=== PATIENT | female | born 1945 | race Caucasian/White ===

== ENCOUNTER 2025-03-27 22:08 | Inpatient (IN) | payer MEDICARE, OTHER, SELFPAY ==
[2025-03-27 17:02] VITALS: BP 143/89
[2025-03-27 18:57] VITALS: BMI 26.0
[2025-03-27 19:09] LABS: % Basophils 1.1 % (0-2); % Eosinophils 2.5 % (0-6); % Immature Granulocytes 0.2 % (0-0.5); % Lymphocytes 19.1 % (20.5-51.1); % Neutrophils 64.1 % (42.2-75.2); Absolute Basophils 0.1 10^3/uL (0-0.2); Absolute Eosinophils 0.1 10^3/uL (0-0.7); Absolute Lymphocytes 1.1 10^3/uL (1.2-3.4); Absolute Monocytes 0.7 10^3/uL (0.1-0.6); Absolute Neutrophils 3.7 10^3/uL (1.4-6.5); Hematocrit 38.8 % (37.0-47.0); Hemoglobin 13.1 g/dL (12.0-16.0); Mean Corp Hgb Conc. 33.8 g/dL (33.0-37.0); Mean Corpuscular Hgb 31.4 pg (27.0-31.0); Mean Platelet Volume 12.5 fL (7.4-10.4); Nucleated Red Blood Cells % 0 %; Platelet Count 154 10^3/uL (130-400); Red Blood Cell Count 4.17 10^6/uL (4.20-5.40); Red Cell Dist. Width 14.4 % (11.5-14.5); White Blood Cell Count 5.7 10^3/uL (4.8-10.8)
[2025-03-27 19:33] LABS: Troponin I 0.013 ng/ml
[2025-03-27 19:36] LABS: Blood Urea Nitrogen 20 mg/dl (7-17); Calcium 9.4 mg/dl (8.4-10.2); Carbon Dioxide 25 mmol/L (22-30); Chloride 111 mmol/L (98-107); Estimated Creatinine Clearance 46 ml/min; Glucose 94 mg/dl (70-99); Potassium 4.1 mmol/L (3.5-5.1); Sodium 141 mmol/L (135-145); eGFR > 60.00
[2025-03-27 21:00] VITALS: BP 151/104
--- NOTE | 2025-03-27 21:04 | HPS.HSE ---
Family Physician
-
Family Physician: Juan Diego William
Chief Complaint
-
Dizziness, Palps, Weakness sent in for Aflutter RVR at cardio office
History of Present Illness
79yo F with PMH HTN, Atrial Fibrillation on Xarelto/Metoprolol, CVA (~5yrs ago, R Residual LE weakness), Neuropathy, Chronic Back Pain who presents to ER for weakness, palpitations, dizziness. Pt is belarusian speaking. Her Son, Dave Feliciano, at bedside
aiding in translation per pt preference. Symptoms have been intermittent for months-years but today it was more severe prompting evaluation. Also endorses mild nausea without emesis. Today she was seen by Rn Staffing Juan Diego William who sent her to
ER for further evaluation after HR 138, EKG confirming Aflutter RVR. At time of discharge he increased metoprolol succ from 50mg to 100mg daily. Son does state that she recently moved to live with him from [place] 2 months ago and Thus he would
like her to establish care with a more local educational recruiter. Denies F/C, CP, Wheezing, Cough, SOB, Abd Pain, Vomitting, Dysuria, Calf or Leg pain.
ER course: T�99.0,�HR 125->105,�BP 143/89,�RR 22,�Sat 96% RA. WBC 5.7K, Hgb 13.1 g/dL. BUN/Cr 20/0.9, K 4.1,� HS Trop 0.013.�CXR NAD (official read pending.) EKG Aflutter wtih variable AVB @ 95bpm, TWI II-AVF,�V4-V6, QTC 424ms. S/P 5mg IV cardizem
gtt and Bolus in ER.�
Medical History
Past Medical History
Past Medical History: Reports Other (HTN, Atrial Fibrillation on Xarelto/Metoprolol, CVA (5yrs ago with R Leg Weakness), Neuropathy, Chronic Back Pain )
Past Surgical History: Reports Other
Additional Past Surgical History:
Cataract B/L
Social History
Tobacco: Non-smoker
Alcohol: None
Drug: None
Living: With Family
Employment: Retired
Family History
Family History: Other (Unknown family history. Son with no medical conditions. )
Allergies / Home Medications
Allergies reflects when Allergies were last updated in [facility] [employer].
Home Medications with original date entered in [facility] [employer]
Allergy/Medication List:
Allergies
Allergy/AdvReac Type Severity Reaction Status Date / Time
No Known Allergies Allergy Unverified 03/27/25 17:01
Home Medications
amlodipine 5 mg tablet 5 mg PO DAILY 03/27/25
calcium 500 mg (as carbonate)-vitamin D3 10 mcg (400 unit) tablet (Oyster Shell Calcium-Vitamin D3) tab 03/27/25
cholecalciferol (vitamin D3) 50 mcg (2,000 unit) tablet 50 mcg PO DAILY 03/27/25
gabapentin 300 mg tablet 300 mg PO BID 03/27/25
magnesium oxide 400 mg (241.3 mg magnesium) tablet (MagOx) 400 mg PO DAILY 03/27/25
meclizine 12.5 mg tablet 12.5 mg PO TID PRN dizziness 03/27/25
metoprolol succinate 100 mg capsule sprinkle, ext. release 24 hr 100 mg PO DAILY 03/27/25
rivaroxaban 20 mg tablet 20 mg PO QPM 03/27/25
vitamin E 400 unit tablet 03/27/25
Review of Systems
-
A 12 point ROS was completed and negative except as noted: Yes
Physical Exam
Vital Signs
Vital Signs
Temp Pulse Resp BP Pulse Ox
99.0 F 105 22 143/89 96
03/27/25 17:02 03/27/25 20:15 03/27/25 20:15 03/27/25 17:02 03/27/25 20:15
Physical Exam
General: Well Developed, Well Nourished, No Apparent Distress and Other (Colombian Speaking)
HEENT: NormoCephalic, Moist mucous membranes and Atraumatic
Respiratory: Clear; No Wheezes, Rales or Rhonchi
Cardiac: S1/S2, Irregular Rhythm and Tachycardia; No Murmur or Rub
GI: Soft, Non Tender, Non Distended and Normal Bowel Sounds; No Organomegaly
Rectal: Deferred by Provider
Musculoskeletal: No Clubbing, No Cyanosis and No Edema
Skin: Warm and Dry; No Rash
Neuro: Awake, Alert, Oriented, AO x 3, Cranial Nerves Intact, No Sensory Deficits and Other (MSK UE 5/, MSK LLE 5/5. MSK RLE 4/ (chronic). )
Hematologic/Lymphatic: No Lymphadenopathy
Psych: Calm and Intact Judgment/Insight
Laboratory Results
-
03/27/25 18:57
03/27/25 18:57
Laboratory Results
Troponin I 0.013 ng/ml 03/27/25 18:57
Data Reviewed
-
Diagnostic Radiology: Image Personally Visualized and interpreted
Medical Tests (Nuc Med, Echo, EKG etc): Image Personally Visualized and interpreted
Lab Data: Labs Reviewed by me
Old Records: Reviewed
Impression/Plan
-
79yo F with PMH HTN, Atrial Fibrillation on Xarelto, CVA, Neuropathy, Chronic Back Pain who presents to ER for weakness, palpitations, dizziness found to be in Aflutter RVR sent in by cardio office
Aflutter RVR
Elevated Troponin
- Pt presents with dizziness, palpitatoins, weakness more severe today
- HR 138 at Rn Staffing (Juan Diego William) office. Metoprolol increased from Toprol XL 50mg -> 100mg daily and sent to ER
- HR 125 on arrival. EKG Aflutter wtih variable AVB @ 95bpm, TWI II-AVF,�V4-V6, QTC 424ms.
- S/p 5mg IV cardizem bolus/gtt.
- Continue Xarelto for A.C.
- Maintain K >4.0 and Mag 2.0
- Check TSH, Lipids, A1C
- TTE per patient paperwork 05/2020: EF 65%, Mild MR
- Repeat TTE
- Cardio consulted.
HTN - Continue home metoprolol and amlodipine with hold parameters
Hx CVA - Mild Right LE residual weakness. Not on aspirin therapy. Likely embolic etiology. Continue eliquis. Not on statin therapy. Check Lipids.
Neuropathy / Chronic Pain - Continue home gabapentin.
Diet: Cardiac
DVT ppx: Xarelto
Code Status: Full Code, confirmed with patient and son Dave Feliciano
[2025-03-27] MEDS: CARDIZEM 125 IV (21:09)
[2025-03-27] MEDS: CARDIZEM 5 MG IV (21:10)
[2025-03-27 21:48] LABS: ALT (SGPT) 92 U/L (0-35); AST (SGOT) 98 U/L (14-36); Albumin 3.9 g/dl (3.5-5.0); Alkaline Phosphatase 69 U/L (38-126); Direct Bilirubin 0.2 mg/dl (0.0-0.4); Total Bilirubin 0.7 mg/dl (0.2-1.3); Total Protein 6.3 g/dl (6.3-8.2)
[2025-03-27 22:19] LABS: TSH Reflex To Free T4 2.25 uIU/ml (0.47-4.68)
[2025-03-27 23:21] VITALS: BP 116/76
[2025-03-27 23:52] VITALS: BP 168/110
[2025-03-28] VITALS (14 sets, daily range): BP systolic 120–166; BP diastolic 77–103; BMI 26.0; BMI 24.6
--- NOTE | 2025-03-28 01:07 | PTCARENOTE ---
Pt admitted on the unit from ED at 2350, able to walk from stretcher to bed without issues. aaox4 primary language Citizen [place], however is able to make needs known and speak [place] Irish. Cardizem gtt infusing at 2.5 ml/hr via right AC. Afib on the
monitor. HR 48-65, BP 133/81. diagnostic tech COURT MANAGER made aware, cardizem gtt on hold at 0020. Pt denies any complaints of pain/dizziness/SOB. Call black within reach, oriented to room and surroundings.
[2025-03-28] MEDS: XARELTO 20 MG PO ×2 (01:22→17:25)
[2025-03-28 04:27] LABS: Hematocrit 38.7 % (37.0-47.0); Hemoglobin 12.9 g/dL (12.0-16.0); Mean Corp Hgb Conc. 33.3 g/dL (33.0-37.0); Mean Corpuscular Hgb 31.5 pg (27.0-31.0); Mean Corpuscular Volume 94.6 fL (81.0-99.0); Mean Platelet Volume 12.9 fL (7.4-10.4); Platelet Count 136 10^3/uL (130-400); Red Blood Cell Count 4.09 10^6/uL (4.20-5.40); Red Cell Dist. Width 14.3 % (11.5-14.5); White Blood Cell Count 4.9 10^3/uL (4.8-10.8)
[2025-03-28 04:45] LABS: Blood Urea Nitrogen 19 mg/dl (7-17); Calcium 9.1 mg/dl (8.4-10.2); Carbon Dioxide 29 mmol/L (22-30); Chloride 112 mmol/L (98-107); Estimated Creatinine Clearance 48 ml/min; Glucose 107 mg/dl (70-99); HDL Cholesterol 43 mg/dl; LDL Cholesterol, Calculated 93 mg/dl; Potassium 3.8 mmol/L (3.5-5.1); Sodium 143 mmol/L (135-145); Total Cholesterol 152 mg/dl (50-199); Triglyceride 80 mg/dl (10-149); Very Low Density Lipoprotein 16 mg/dl (0-30); eGFR > 60.00
[2025-03-28 04:50] LABS: Troponin I < 0.012 ng/ml
--- NOTE | 2025-03-28 08:09 | CON.CAR ---
Addendum entered and electronically signed by Shon Jc MD 03/28/25 13:38:
I saw and examined the patient.
The DIRECTOR HOME's note was reviewed and I agree with the note.
79-year-old Pakistani female with history of hypertension hypercholesterolemia CVA, A-fib/atrial flutter on Xarelto who was has weakness and fatigue previously seen by Dr. Coto in 2023 but also has been seen by Dr. Brennan and most recently was
seen in his office. Sounds as if she has had some complaints of fatigue for period of time some days worse than others. Patient presented with A-fib with RVR. Duration unknown. Maintained on Xarelto also maintained on metoprolol. Sounds as if
there has been some titration of her doses which is which suggested that there were efforts for additional rate control or additional control of symptoms as an outpatient. Exact duration of most recent episode unclear. Patient now maintained on
metoprolol p.o. and IV Cardizem with good rate control currently comfortable. History obtained in discussion with patient with son who was on the phone. We discussed heart rate control heart rhythm control anticoagulation. We discussed challenges
of maintaining sinus rhythm if she has been in A-fib a long prolonged period of time we discussed the possibility of RADHA cardioversion.
- Continue metoprolol as prescribed
- Transition IV Cardizem to oral short acting Cardizem
- Echocardiogram
- Will try and obtain additional information from her primary halftone operator as we determine additional treatment plans.
- Note. If RADHA cardioversion is recommended then patient is agreeable. Procedures and risks were reviewed with the patient and her son
Original Note:
Consultation
Consultation Request
Date/Time Consultation Requested: 03/28/258
Date/Time Consultation Performed: 03/28/25 9300
Requesting Provider: Dr. Pham
Performing Provider: Omayra CHAVEZ for Dr. Jc
Reason for Consultation: AFIB with RVR
Medical History
-
Chief Complaint: dizziness, palps, weakness
History of Present Illness:
79 y/o female with hypertension, dyslipidemia, hx CVA, AFIB/aflutter on Xarelto who is here for evaluation of weakness, palpitations, and dizziness. She was seen by Dr. William who recommended she go to hospital. She is seen to be in Afib/flutter.
She is on a diltiazem drip, and rate controlled with this. The last OP cardiology note available currently is 12/21/[address] Coto. However, she reports that Dr. Brennan is her halftone operator now. She is Ukranian-speaking and we used irrigator valve pipe IPAD
for communication. She is in no distress at the time of my assessment.
Past Medical History
Past Medical History: Arrhythmias, CVA, HTN and Hypercholesterolemia
Social History
Tobacco: Non-Smoker
Living: With Family
Allergies / Home Medications
Allergy/AdvReac Type Severity Reaction Status Date / Time
No Known Allergies Allergy Unverified 03/27/25 17:01
�Medication �Instructions �Recorded �Confirmed �Type
amlodipine 5 mg tablet 5 mg PO DAILY 03/27/25 03/27/25 History
calcium 500 mg (as tab 03/27/25 History
carbonate)-vitamin D3 10 mcg (400
unit) tablet (Oyster Shell
Calcium-Vitamin D3)
cholecalciferol (vitamin D3) 50 50 mcg PO DAILY 03/27/25 03/27/25 History
mcg (2,000 unit) tablet
gabapentin 300 mg tablet 300 mg PO BID 03/27/25 03/27/25 History
magnesium oxide 400 mg (241.3 mg 400 mg PO DAILY 03/27/25 03/27/25 History
magnesium) tablet (MagOx)
meclizine 12.5 mg tablet 12.5 mg PO TID PRN dizziness 03/27/25 03/27/25 History
metoprolol succinate 100 mg 100 mg PO DAILY 03/27/25 03/27/25 History
capsule sprinkle, ext. release 24
hr
rivaroxaban 20 mg tablet 20 mg PO QPM 03/27/25 03/27/25 History
vitamin E 400 unit tablet 03/27/25 History
Review of Systems
-
History Source: Patient and Other (and chart)
Constitutional: Other (weakness, dizziness)
Cardiac: Palpitations
Physical Exam
Vital Signs
Temp Pulse Resp BP Pulse Ox
97.4 F 74 20 151/92 97
03/28/25 07:40 03/28/25 07:45 03/28/25 07:40 03/28/25 04:01 03/28/25 07:40
Lab Results
03/28/25 04:14
03/28/25 04:14
Troponin I < 0.012 ng/ml 03/28/25 04:14
Physical Exam
General: Well Developed, Well Nourished and No Apparent Distress
HEENT: Normocephalic and Anicteric
Respiratory: Clear and Non Labored Respirations
Cardiac: Irregular Rhythm
Musculoskeletal: No Edema
Skin: Warm and Dry
Neuro: AO x 3
Psych: Calm
Impression / Plan
-
Atrial fibrillation (previously paroxysmal per notes, currently onset unknown), atrial flutter (type unknown):
-continue IV diltiazem for now, which requires intensive monitoring. Also continue metoprolol.
-continue Xarelto- reports that she occasionally misses doses. We discussed CV, which would require RADHA prior. She wants to discuss with her son. It sounds like rate-control has not been successful (she reports metoprolol has been adjusted quite a
bit over time). Will need to review compliance post-CV if she chooses that route.
-TSH WNL, checking echo
-records requested from Dr. Brennan's office (last seen there in July)
HTN:
-continue BB, monitor on dilt drip (typically on amlodipine- will hold since on diltiazem)
Hx CVA:
-on Xarelto
-formerly on statin, not clear why shes not on now- follow-up with OP doctors on this.
HLD:
-lipid discussion as above
Data Reviewed
-
EKG: Tracing Personally Visualized and interpreted (atrial flutter 95 BPM, t abnormality)
Radiology: Report Reviewed by me (CXR: The lungs appear clear. Cardiomegaly with no evidence for pulmonary edema or pleural effusion.)
Medical Tests (Nuc Med, Echo etc): Other (echo ordered, but per OP noted 2023 EF normal)
Labs: Labs Reviewed by me
Old Records: Requested
[2025-03-28] MEDS: VITAMIN D3 (cholecalciferol) 50 MCG PO (08:20)
[2025-03-28] MEDS: TOPROL XL 100 MG PO (08:20)
[2025-03-28] MEDS: MAGNESIUM OXIDE 500 MG PO (08:20)
[2025-03-28 09:17] LABS: Glycohemoglobin (HgbA1c) 5.9 % (4.0-5.6)
--- NOTE | 2025-03-28 09:30 | PTCARENOTE ---
Pt remains afib on monitor. HR 130s. Cardizem gtt resumed at 5ml/hr per Barbara RANDOLPH.
--- NOTE | 2025-03-28 12:28 | CM ---
Chart reviewed. Patient is independent of ADLS, lives alone, but son lives close by, lives in an apartment, elevator access, ambulates with a SPC and also has a RW at home. Plan is for the patient to return home. CM to follow
--- NOTE | 2025-03-28 14:45 | W.PN.HOSP.TC ---
Today's Communication/Plan
-
rate control
RADHA/Cardioversion as per patient/cards
TTE
Assessment / Plan
Assessment / Plan
Physical Exam
General: Well Developed, Well Nourished and No Apparent Distress
HEENT: Normocephalic and Anicteric
Respiratory: Clear and Non Labored Respirations
Cardiac: Irregular Rhythm
Musculoskeletal: No Edema
Skin: Warm and Dry
Neuro: AO x 3
Psych: Calm
79yo F with PMH HTN, Atrial Fibrillation on Xarelto, CVA, Neuropathy, Chronic Back Pain who presents to ER for weakness, palpitations, dizziness found to be in Aflutter RVR sent in by cardio office
Atrial Fibrillation
Aflutter RVR
-Cont dilt ggt
- Continue Xarelto for A.C.
- Maintain K >4.0 and Mag 2.0
-Cardioversion as per cards, would need RADHA as patient sometimes misses doses of NOAC
-Cont BB
-F/u ECHO
HTN - Continue home metoprolol and cardizem
Hx CVA - Mild Right LE residual weakness. Not on aspirin therapy. Likely embolic etiology. Continue eliquis. Not on statin therapy. Check Lipids.
#HLD
-should be on statin but is not, unclear why not
-f/u outpt for this
Neuropathy / Chronic Pain - Continue home gabapentin.
Diet: Cardiac
DVT ppx: Xarelto
Code Status: Full Code
Total time spent on today's encounter was 50 minutes which included time spent in counseling the patient/family regarding diagnosis and treatment plan as listed above, goals of care, and symptom management. Case was discussed with nursing staff,
specialists, and care coordinators/case management. All labs and imaging personally reviewed by me. Remainder the time spent in detailed review of previous records, lab data, imaging, and other medical provider documentation.
Anticipated Discharge: 24 - 48 hours
Subjective/Interval History
-
Date of Service: March 28, 2025
no acute events, still in afib
Objective Data
-
Labs:
Laboratory Results
03/28/25
04:14
WBC 4.9
Hgb 12.9
Hct 38.7
Plt Count 136
Sodium 143
Potassium 3.8
Chloride 112 H
Carbon Dioxide 29
BUN 19 H
Creatinine 0.9
Glucose 107 H
Calcium 9.1
Vital Signs:
Vital Signs
Temp Pulse Resp BP Pulse Ox
97.5 F 71 20 133/84 97
03/28/25 12:15 03/28/25 12:17 03/28/25 12:15 03/28/25 12:17 03/28/25 12:15
I&O
03/27/25 03/28/25 03/29/25
06:59 06:59 06:59
Intake Total 480 / 480 480 / 480
Balance 480 / 480 480 / 480
Review of Systems
-
History Source: Patient
All other systems: Not reviewed unless documented
Data Reviewed
-
Diagnostic Radiology: Report Reviewed by me
Labs: Labs Reviewed by me
[2025-03-28] MEDS: CARDIZEM 30 MG PO ×2 (16:27→22:09)
[2025-03-28] MEDS: TYLENOL 1000 MG PO (22:08)
[2025-03-29] VITALS (11 sets, daily range): BP systolic 111–158; BP diastolic 84–112
--- NOTE | 2025-03-29 00:29 | PTCARENOTE ---
assumed care of the patient at the change of shift. AAOx3. son at the bedside. patients primary language is Trinidadian but does speak Colombian and can make needs known and answer questions appropriately. reviewed plan of care with patient and son-
both verbalized understanding. NPO at midnight for possible RADHA/CV. controlled Afib on tele- 70s-90s. increased rates when oob. patient states palpitations at times but nothing like at home. denies any sob. ambulating in the room-steady on her feet.
patient states movement helps with her stiffness and pain. complaining of leg cramps. patient states she takes magnesium at night for leg cramps. patient refusing gabapentin dose because a doctor told her it was 'bad for her cognition.' updated
Cierra castellanos HOSE TESTER. ordered patient 1000 mg of tylenol. patient agreeable. educated patient to inform RN with any other changes. call black within reach. makes needs known.
[2025-03-29 05:17] LABS: Hematocrit 39.1 % (37.0-47.0); Mean Corp Hgb Conc. 33.2 g/dL (33.0-37.0); Mean Corpuscular Hgb 31.5 pg (27.0-31.0); Mean Corpuscular Volume 94.7 fL (81.0-99.0); Mean Platelet Volume 12.6 fL (7.4-10.4); Platelet Count 148 10^3/uL (130-400); Red Blood Cell Count 4.13 10^6/uL (4.20-5.40); Red Cell Dist. Width 14.2 % (11.5-14.5); White Blood Cell Count 5.8 10^3/uL (4.8-10.8)
[2025-03-29 05:44] LABS: ALT (SGPT) 74 U/L (0-35); AST (SGOT) 55 U/L (14-36); Albumin 3.8 g/dl (3.5-5.0); Alkaline Phosphatase 56 U/L (38-126); Blood Urea Nitrogen 21 mg/dl (7-17); Calcium 9.4 mg/dl (8.4-10.2); Carbon Dioxide 30 mmol/L (22-30); Chloride 110 mmol/L (98-107); Estimated Creatinine Clearance 48 ml/min; Glucose 100 mg/dl (70-99); Potassium 4.6 mmol/L (3.5-5.1); Sodium 144 mmol/L (135-145); Total Bilirubin 0.8 mg/dl (0.2-1.3); Total Protein 6.2 g/dl (6.3-8.2); eGFR > 60.00
--- NOTE | 2025-03-29 06:09 | PTCARENOTE ---
on tele review, multiple pauses noted. Afib overnight 50s-70s. longest pause noted 2.9. slept well overnight. asymptomatic. NPO since midnight.
[2025-03-29] MEDS: MAGNESIUM OXIDE 500 MG PO ×2 (08:44→23:19)
[2025-03-29] MEDS: CARDIZEM 30 MG PO (08:44)
[2025-03-29] MEDS: VITAMIN D3 (cholecalciferol) 50 MCG PO (08:44)
[2025-03-29] MEDS: TOPROL XL 100 MG PO (08:44)
[2025-03-29] MEDS: ADENOCARD 6 MG IV (12:03)
--- NOTE | 2025-03-29 12:52 | W.PN.CD ---
Today's Communication / Plan
-
-RADHA Negative for left atrial appendage thrombus.
-Unsuccessful attempts at DC cardioversion via 200 J, 250 J, and 300 J synchronized shocks; patient remains in atrial flutter.
-Will place on Cardizem CD 180 mg daily.
Impression / Plan
-
Atrial fibrillation (previously paroxysmal per notes, currently onset unknown), atrial flutter (type unknown):
-continue IV diltiazem for now, which requires intensive monitoring. Also continue metoprolol.
-continue Xarelto- reports that she occasionally misses doses.
-TSH WNL, LVEF 50-55%.
-records requested from Dr. Brennan's office (last seen there in July).
-RADHA Negative for left atrial appendage thrombus.
-Unsuccessful attempts at DC cardioversion via 200 J, 250 J, and 300 J synchronized shocks; patient remains in atrial flutter.
-Will place on Cardizem CD 180 mg daily.
HTN:
-Blood pressure mildly elevated.
-Continue Toprol-XL 100 mg daily.
-Placing on Cardizem CD 180 mg daily as above.
Hx CVA:
-on Xarelto
-formerly on statin, not clear why shes not on now- follow-up with OP doctors on this.
HLD:
-lipid discussion as above
Mild to moderate MR/TR:
- Will continue to monitor over time as outpatient.
Small to moderate anterior pericardial effusion:
- Hemodynamically stable.
Physical Exam
Vital Signs/Labs
Vital Signs
Temp Pulse Resp BP Pulse Ox
97.8 F 133 20 158/84 98
03/29/25 08:20 03/29/25 09:30 03/29/25 08:20 03/29/25 08:44 03/29/25 08:20
03/28/25 03/29/25 03/30/25
06:59 06:59 06:59
Actual Weight 71.3 kg
03/29/25 04:59
03/29/25 04:59
Magnesium 2.0 mg/dl (1.6-2.3) 03/28/25 04:14
Triglycerides 80 mg/dl (10-149) 03/28/25 04:14
LDL Cholesterol, Calc 93 mg/dl 03/28/25 04:14
VLDL Cholesterol, Calc 16 mg/dl (0-30) 03/28/25 04:14
HDL Cholesterol 43 mg/dl 03/28/25 04:14
LAB Results
03/27/25 03/28/25
18:57 04:14
Troponin I 0.013 < 0.012
Physical Exam
Constitutional: No acute distress and Comfortable
EENT: Anicteric
Cardiovascular: Rhythm & rate is regular, Pedal edema is absent, Systolic murmur present (2/) and S1S2 is normal
Respiratory: Respiratory effort normal and Lungs clear to auscul.
GI: Soft
Neuro/Psych: AO x 3
Other: Skin (Warm, dry, intact)
Data Reviewed
-
Date of Service: March 29, 2025
EKG: Tracing Personally Visualized and interpreted (Telemetry: Atrial flutter)
Echo: Tracing Personally Visualized and interpreted (RADHA: Negative left atrial appendage thrombus)
Labs: Labs Reviewed by me
--- NOTE | 2025-03-29 12:57 | PTCARENOTE ---
Received pt post CV. Pt sleepy, Pt hypertensive. Pt remains in a fib. Will monitor.
[2025-03-29] MEDS: CARDIZEM CD 180 MG PO (13:09)
--- NOTE | 2025-03-29 13:17 | CM ---
Chart reviewed. Patient is independent of ADLS, lives alone in an apartment, elevator access, has a SPC and RW available if needed. Plan is for the patient to return home. CM to follow
--- NOTE | 2025-03-29 13:25 | W.PN.HOSP.TC ---
Today's Communication/Plan
-
Unsuccessful cardioversion
Started on diltiazem
Monitor heart rates
Assessment / Plan
Assessment / Plan
Physical Exam
General: Well Developed, Well Nourished and No Apparent Distress
HEENT: Normocephalic and Anicteric
Respiratory: Clear and Non Labored Respirations
Cardiac: Irregular Rhythm
Musculoskeletal: No Edema
Skin: Warm and Dry
Neuro: AO x 3
Psych: Calm
79yo F with PMH HTN, Atrial Fibrillation on Xarelto, CVA, Neuropathy, Chronic Back Pain who presents to ER for weakness, palpitations, dizziness found to be in Aflutter RVR sent in by cardio office
Atrial Fibrillation
Aflutter RVR
-Cont dilt ggt
- Continue Xarelto for A.C.
- Maintain K >4.0 and Mag 2.0
- RADHA negative for left atrial appendage thrombus
� Unsuccessful cardioversion, remains in atrial flutter
� Cardizem CD 180 mg daily
-Cont BB
�EF 50 to 55%, possible mid anterior septal/inferoseptal hypokinesis. Small to moderate-sized anterior pericardial effusion
Small to moderate-sized anterior pericardial effusion
-f/u cards recs
-hemodynamically stable
HTN - Continue home metoprolol and cardizem
Hx CVA - Mild Right LE residual weakness. Not on aspirin therapy. Likely embolic etiology. Continue eliquis. Not on statin therapy. Check Lipids.
#HLD
-should be on statin but is not, unclear why not
-f/u outpt for this
Neuropathy / Chronic Pain - Continue home gabapentin.
Diet: Cardiac
DVT ppx: Xarelto
Code Status: Full Code
Total time spent on today's encounter was 51 minutes which included time spent in counseling the patient/family regarding diagnosis and treatment plan as listed above, goals of care, and symptom management. Case was discussed with nursing staff,
specialists, and care coordinators/case management. All labs and imaging personally reviewed by me. Remainder the time spent in detailed review of previous records, lab data, imaging, and other medical provider documentation.
Anticipated Discharge: Within 24 hours
Subjective/Interval History
-
Date of Service: March 29, 2025
For RADHA cardioversion today
Objective Data
-
Labs:
Laboratory Results
03/29/25
04:59
WBC 5.8
Hgb 13.0
Hct 39.1
Plt Count 148
Sodium 144
Potassium 4.6
Chloride 110 H
Carbon Dioxide 30
BUN 21 H
Creatinine 0.9
Glucose 100 H
Calcium 9.4
Total Bilirubin 0.8
AST 55 H
ALT 74 H
Alkaline Phosphatase 56
Vital Signs:
Vital Signs
Temp Pulse Resp BP Pulse Ox
97.7 F 103 20 143/110 99
03/29/25 13:03 03/29/25 13:09 03/29/25 13:03 03/29/25 13:09 03/29/25 13:03
I&O
03/28/25 03/29/25 03/30/25
06:59 06:59 06:59
Intake Total 480 / 480 1660 / 1660
Balance 480 / 480 1660 / 1660
Review of Systems
-
History Source: Patient
All other systems: Not reviewed unless documented
Data Reviewed
-
Diagnostic Radiology: Report Reviewed by me
Labs: Labs Reviewed by me
[2025-03-29] MEDS: XARELTO 20 MG PO (17:40)
--- NOTE | 2025-03-29 20:59 | PTCARENOTE ---
Pt rec'd at change of shift with c/o sore throat. pt denied needing a lozenge instead has gotten relief with warm water. Afib on telemetry 80's.
[2025-03-29] MEDS: TYLENOL 650 MG PO (23:19)
--- NOTE | 2025-03-29 23:34 | PTCARENOTE ---
At HS pt c/o right hip and thigh spasms (sciatica). Pt requesting additional magnesium and Tylenol. order obtained and doses given. Pt seen at bedside stretching hips and walking in room. Afib in 90's
[2025-03-30 04:53] VITALS: BP 124/84
[2025-03-30 05:41] LABS: Hematocrit 39.4 % (37.0-47.0); Hemoglobin 13.3 g/dL (12.0-16.0); Mean Corp Hgb Conc. 33.8 g/dL (33.0-37.0); Mean Corpuscular Hgb 31.7 pg (27.0-31.0); Mean Corpuscular Volume 93.8 fL (81.0-99.0); Mean Platelet Volume 12.5 fL (7.4-10.4); Platelet Count 150 10^3/uL (130-400); White Blood Cell Count 5.6 10^3/uL (4.8-10.8)
[2025-03-30 06:00] LABS: ALT (SGPT) 55 U/L (0-35); AST (SGOT) 39 U/L (14-36); Albumin 3.8 g/dl (3.5-5.0); Alkaline Phosphatase 59 U/L (38-126); Blood Urea Nitrogen 17 mg/dl (7-17); Calcium 9.6 mg/dl (8.4-10.2); Carbon Dioxide 27 mmol/L (22-30); Chloride 110 mmol/L (98-107); Estimated Creatinine Clearance 54 ml/min; Glucose 96 mg/dl (70-99); Potassium 4.1 mmol/L (3.5-5.1); Sodium 141 mmol/L (135-145); Total Bilirubin 0.8 mg/dl (0.2-1.3); Total Protein 6.2 g/dl (6.3-8.2); eGFR > 60.00
[2025-03-30 08:08] VITALS: BP 129/88
[2025-03-30 08:12] VITALS: BP 129/88
[2025-03-30] MEDS: CARDIZEM CD 180 MG PO (08:13)
[2025-03-30] MEDS: VITAMIN D3 (cholecalciferol) 50 MCG PO (08:13)
[2025-03-30] MEDS: TOPROL XL 100 MG PO (08:13)
[2025-03-30] MEDS: MAGNESIUM OXIDE PO (08:14)
[2025-03-30] MEDS: FLUSH (NSS) 1 FLUSH IV (08:14)
--- NOTE | 2025-03-30 09:40 | PTCARENOTE ---
Received patient this morning resting in bed, seen by cardiology and hopeful to go home today. Remains in AF with rate in the 80's, offers no complaints. Ambulating in the room frequently.
--- NOTE | 2025-03-30 11:47 | W.PN.HOSP.TC ---
Addendum entered and electronically signed by Nabil Sutton MD 03/30/25 14:23:
[id number]
Original Note:
Today's Communication/Plan
-
cardizem
f/u cards outpatient
Small to moderate-sized anterior pericardial effusion - f.u outpatient
F/u pcp within 1 week
Assessment / Plan
Assessment / Plan
Physical Exam
General: Well Developed, Well Nourished and No Apparent Distress
HEENT: Normocephalic and Anicteric
Respiratory: Clear and Non Labored Respirations
Cardiac: Irregular Rhythm
Musculoskeletal: No Edema
Skin: Warm and Dry
Neuro: AO x 3
Psych: Calm
79yo F with PMH HTN, Atrial Fibrillation on Xarelto, CVA, Neuropathy, Chronic Back Pain who presents to ER for weakness, palpitations, dizziness found to be in Aflutter RVR sent in by cardio office
Atrial Fibrillation
Aflutter RVR
-� Unsuccessful cardioversion, remains in atrial flutter 03/29
- Continue Xarelto for A.C.
- Maintain K >4.0 and Mag 2.0
- RADHA negative for left atrial appendage thrombus
� Cardizem CD 180 mg daily
-Cont BB
�EF 50 to 55%, possible mid anterior septal/inferoseptal hypokinesis. Small to moderate-sized anterior pericardial effusion
-F/u cards outpatient
Small to moderate-sized anterior pericardial effusion
-f/u cards recs
-hemodynamically stable
HTN - Continue home metoprolol and cardizem; stop amlodipine
Hx CVA - Mild Right LE residual weakness. Not on aspirin therapy. Likely embolic etiology. Continue eliquis. Not on statin therapy.
#HLD
-should be on statin but is not, unclear why not
-f/u outpt for this
Neuropathy / Chronic Pain - Continue home gabapentin.
Diet: Cardiac
DVT ppx: Xarelto
Code Status: Full Code
More than 30 minutes spent in discharge including
Final examination of the patient
Summarizing hospital stay
Instructions for continuing care to all relevant caregivers
Preparation of discharge records, prescriptions, and referral forms
Total time spent (in minutes): 36
Anticipated Discharge: Today
Subjective/Interval History
-
Date of Service: March 30, 2025
HRs controlled
Objective Data
-
Labs:
Laboratory Results
03/30/25
05:00
WBC 5.6
Hgb 13.3
Hct 39.4
Plt Count 150
Sodium 141
Potassium 4.1
Chloride 110 H
Carbon Dioxide 27
BUN 17
Creatinine 0.8
Glucose 96
Calcium 9.6
Total Bilirubin 0.8
AST 39 H
ALT 55 H
Alkaline Phosphatase 59
Vital Signs:
Vital Signs
Temp Pulse Resp BP Pulse Ox
98 F 104 16 129/88 98
03/30/25 08:12 03/30/25 09:15 03/30/25 08:12 03/30/25 08:12 03/30/25 08:12
I&O
03/29/25 03/30/25 03/31/25
06:59 06:59 06:59
Intake Total 1660 / 1660
Balance 1660 / 1660
Review of Systems
-
History Source: Patient
All other systems: Not reviewed unless documented
Data Reviewed
-
Diagnostic Radiology: Report Reviewed by me
Labs: Labs Reviewed by me
[2025-03-30 11:49] VITALS: BP 130/87
--- NOTE | 2025-03-30 11:50 | W.DS.TRANS ---
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
-
Discharge Instructions:
Sleep Apnea Risk Low
Discharge Diagnosis/Procedures
Atrial Fibrillation
Aflutter RVR
Small to moderate-sized anterior pericardial
effusion
Diet Low Cholesterol,Low Fat
Blood Work cbc and bmp in 3-5 days with pcp
Others Tests Small to moderate-sized anterior pericardial
effusion - follow up with cardiology outpatient
Instructions:
Stand-Alone Forms:
Changes to Home Medications: Yes
Discharge Medications:
DC Medications w/original date entered in [facility]
calcium 500 mg (as carbonate)-vitamin D3 10 mcg (400 unit) tablet (Oyster Shell Calcium-Vitamin D3) tab 03/27/25
cholecalciferol (vitamin D3) 50 mcg (2,000 unit) tablet 50 mcg PO DAILY 03/27/25
gabapentin 300 mg tablet 300 mg PO BID 03/27/25
magnesium oxide 400 mg (241.3 mg magnesium) tablet (MagOx) 400 mg PO DAILY 03/27/25
meclizine 12.5 mg tablet 12.5 mg PO TID PRN dizziness 03/27/25
metoprolol succinate 100 mg capsule sprinkle, ext. release 24 hr 100 mg PO DAILY 03/27/25
rivaroxaban 20 mg tablet 20 mg PO QPM 03/27/25
vitamin E 400 unit tablet 03/27/25
diltiazem HCl 180 mg capsule,extended release 24 hr 180 mg PO DAILY #30 caps 03/30/25
Home Medication Changes
diltiazem HCl 180 mg capsule,extended release 24 hr 180 mg PO DAILY #30 caps 03/30/25
Pending Results: No
--- NOTE | 2025-03-30 12:52 | PTCARENOTE ---
Patient is cleared for discharge home. Prefers a written scrip for now which was given for cullen. Reviewed instructions with the patient and her son, who assisted with translation about follow up appointments and the need for blood work. Patient
states her understanding of medications and their schedule. Patient discharged home with her son.
== END 2025-03-30 12:56 | disposition home or self-care (01) | DRG 309 ==
LOC: IVU 22:08
PROVIDERS: Internal Medicine; ADMITTING PHYSICIAN Internal Medicine; ATTENDING PHYSICIAN Internal Medicine; EMERGENCY PHYSICIAN Emergency Medicine; FAMILY PHYSICIAN Internal Medicine; OTHER PHYSICIAN Internal Medicine Cardiovascular Disease
PROC: B24BZZ4 Ultrasonography of Heart with Aorta, Transesophageal (ICD-10-PCS; 2025-03-29)
DX: I48.91 Unspecified atrial fibrillation (principal); I31.39 Other pericardial effusion (noninflammatory); I48.92 Unspecified atrial flutter; I10 Essential (primary) hypertension; G62.9 Polyneuropathy, unspecified; M54.9 Dorsalgia, unspecified; G89.29 Other chronic pain; E78.00 Pure hypercholesterolemia, unspecified; Z60.3 Acculturation difficulty; I69.341 Monoplegia of lower limb following cerebral infarction affecting right dominant side; Z79.01 Long term (current) use of anticoagulants
CPT/HCPCS: 71046; 80048; 80053; 80061; 80076; 83036; 83735; 84443; 84484; 85025; 85027; 92960; 93005; 93306; 93312; 93320; 93325; 96374; 96376; 99285; J0153

== ENCOUNTER → 2025-05-24 08:23 | Outpatient (REF) | payer MEDICARE, OTHER, SELFPAY | LOC: HWRCS 08:23 | PROVIDERS: ATTENDING PHYSICIAN Nurse Practitioner Gerontology; FAMILY PHYSICIAN Internal Medicine | DX: I31.39 Other pericardial effusion (noninflammatory) (principal); I48.0 Paroxysmal atrial fibrillation | CPT/HCPCS: 93308 ==

== ENCOUNTER → 2025-07-16 09:26 | Outpatient (REF) | payer MEDICARE, OTHER, SELFPAY | LOC: HWRCS 09:26 | PROVIDERS: ATTENDING PHYSICIAN Internal Medicine Cardiovascular Disease; FAMILY PHYSICIAN Internal Medicine | DX: I48.92 Unspecified atrial flutter (principal); I48.19 Other persistent atrial fibrillation; Z92.89 Personal history of other medical treatment; Z79.01 Long term (current) use of anticoagulants; I31.39 Other pericardial effusion (noninflammatory); I44.4 Left anterior fascicular block | CPT/HCPCS: 93308 ==